=== PATIENT | female | born 1990 | race Two or more races ===

== ENCOUNTER 2024-04-14 08:00 | Outpatient (RCR) | payer MEDICAID, SELFPAY ==
--- NOTE | 2024-03-29 12:07 | PT.ODAYNRPT ---
PT Outpatient Daily Note OP Daily Note Outpatient Physical Therapy Treatment Date: 03/29/24 Visit Reasons: Left knee pain Subjective: The L knee isn't hurting today upon arrival only hurts with rotating on planted foot. Objective: See F/S for therex Assessment: Low tissue irritability of L knee with closed chain therex. The knee is rotation sensitive consistent with possible meniscus irritation Plan: Continue per POC Length of Time (minutes) of Treatment: 30 Minutes Procedure Charges Therapeutic Exercise 30 minutes: Yes
--- NOTE | 2024-04-06 08:38 | PT.ODAYNRPT ---
PT Outpatient Daily Note OP Daily Note Outpatient Physical Therapy Treatment Date: 04/06/24 Visit Reasons: Left knee pain Subjective: The L knee isn't hurting today upon arrival only hurts with rotating on planted foot. Objective: See F/S for therex Assessment: Low tissue irritability of L knee with closed chain therex. The knee is rotation sensitive consistent with possible meniscus irritation Plan: Continue per POC Length of Time (minutes) of Treatment: 30 Minutes Procedure Charges Therapeutic Exercise 30 minutes: Yes
--- NOTE | 2024-04-14 11:32 | PT.ODAYNRPT ---
PT Outpatient Daily Note OP Daily Note Outpatient Physical Therapy Treatment Date: 04/14/24 Visit Reasons: Left knee pain Subjective: The L knee isn't hurting today upon arrival only hurts with rotating on planted foot. Objective: See F/S for therex Assessment: Low tissue irritability of L knee with closed chain therex. The knee is rotation sensitive consistent with possible meniscus irritation Plan: Continue per POC Length of Time (minutes) of Treatment: 30 Minutes Procedure Charges Therapeutic Exercise 30 minutes: Yes
== END 2024-04-24 23:59 | disposition home or self-care (01) ==
LOC: CPTX 08:00
PROVIDERS: PCP Student in an Organized Health Care Education/Training Program; Referring Provider Student in an Organized Health Care Education/Training Program; Visit Provider Student in an Organized Health Care Education/Training Program
DX: M25.562 Pain in left knee (principal); R53.1 Weakness
CPT/HCPCS: 97110

== ENCOUNTER 2024-05-11 16:00 | Outpatient (RCR) | payer MEDICAID, SELFPAY ==
--- NOTE | 2024-04-27 17:24 | PT.ODAYNRPT ---
PT Outpatient Daily Note OP Daily Note Outpatient Physical Therapy Treatment Date: 04/27/24 Visit Reasons: Left knee pain Subjective: Less knee pain recently Objective: See F/S for therex Assessment: Low tissue irritability of L knee with closed chain therex. The knee is rotation sensitive consistent with possible meniscus irritation Plan: Continue per POC Length of Time (minutes) of Treatment: 30 Minutes Procedure Charges Therapeutic Exercise 30 minutes: Yes
--- NOTE | 2024-05-05 18:01 | PT.ODAYNRPT ---
PT Outpatient Daily Note OP Daily Note Outpatient Physical Therapy Treatment Date: 05/05/24 Visit Reasons: Left knee pain Length of Time (minutes) of Treatment: 30 Minutes Procedure Charges Therapeutic Exercise 30 minutes: Yes
--- NOTE | 2024-05-05 18:01 | PT.ODAYNRPT ---
PT Outpatient Daily Note OP Daily Note Outpatient Physical Therapy Treatment Date: 05/05/24 Visit Reasons: Left knee pain Subjective: Less knee pain recently Objective: See F/S for therex Assessment: Low tissue irritability of L knee with closed chain therex. The knee is rotation sensitive consistent with possible meniscus irritation Plan: Continue per POC Length of Time (minutes) of Treatment: 30 Minutes Procedure Charges Therapeutic Exercise 30 minutes: Yes
--- NOTE | 2024-05-11 19:31 | PT.ODS1RPT ---
PT OP Progress/Discharge Note Date of Service: 05/11/24 Progress Note/DC Note Progress Note/Discharge Note: DC Note Patient Information Visit Reasons: Left knee pain Service Continue Service or Discharge: Discharge Discharge Date: 05/11/24 Status Subjective: The L knee isn't hurting and she is ready to be done with therapy Objective: See F/S for therex L knee ArOM: Flexion: full Extension: full Strength: Quads: 4/5 HS: 4/5 Assessment: Pt has attended 12 sessions with good progress to meet all goals. Pt has improved quad and HS strength to 4/5 to meet that goal. She can squat x10 with low knee pain and can lift and carry 25 lbs without L knee pain. She is working without L knee pain. Plan: D/C with [facility] Procedure Charges Therapeutic Exercise 30 minutes: Yes
== END 2024-05-25 23:59 | disposition home or self-care (01) ==
LOC: CPTX 16:00
PROVIDERS: PCP Student in an Organized Health Care Education/Training Program; Referring Provider Student in an Organized Health Care Education/Training Program; Visit Provider Student in an Organized Health Care Education/Training Program
DX: M25.562 Pain in left knee (principal); R53.1 Weakness
CPT/HCPCS: 97110

== ENCOUNTER 2024-07-30 16:15 | Emergency (ER) | payer MEDICAID, SELFPAY ==
[2024-07-30 16:17] VITALS: BMI 28.0
[2024-07-30 16:33] VITALS: BP 147/98; PULSE 89; RESP 18; TEMP 36.9; O2SAT 99
--- NOTE | 2024-07-30 16:36 | XR_ITS ---
Examination: PA lateral chest 2 views Technique: Upright PA lateral chest 2 views Exam date and time: May 01, 2025 1647 hrs. Indications: Coughing chest pain shortness of breath weakness fever and chills beginning 3 days ago Findings: Normal heart size Mild to moderate elevation right hemidiaphragm Accentuation basilar bronchovascular markings. No lobar pneumonia Impression: Mild basilar bronchitis pattern
--- NOTE | 2024-07-30 16:36 | EDRME_ITS ---
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
[2024-07-30 17:31] LABS: Basophils % (Auto) 1 % (0-2.5); Eosinophils # (Auto) 0.3 Thou/mm3 (0.0-0.5); Eosinophils % (Auto) 4 % (0-10); Hematocrit 37.2 % (36.0-46.0); Hemoglobin 12.5 g/dL (12.0-16.0); Immature Granulocytes % (Auto) 0 % (0-0); Immature Granulocytes Auto 0.02 Thou/mm3 (0.00-0.00); Lymphocytes # (Auto) 2.5 Thou/mm3 (1.0-4.8); Lymphocytes % (Auto) 35 % (10-50); Mean Corpuscular HGB Conc 33.6 g/dl (31.0-37.0); Mean Corpuscular Hemoglobin 29.7 pg (25.0-35.0); Mean Corpuscular Volume 88 fL (80-100); Monocytes # (Auto) 0.6 Thou/mm3 (0.0-0.8); Monocytes % (Auto) 8 % (0-12); Neutrophils # (Auto) 3.7 Thou/mm3 (1.8-7.7); Neutrophils % (Auto) 53 % (37-80); Nucleated Red Blood Cell % 0 /100 WBC (0); Platelet Count 319 Thou/mm3 (140-440); RDW Standard Deviation 41.1 fL (36.4-46.3); Red Blood Count 4.21 Miln/mm3 (4.00-5.20)
[2024-07-30 17:50] LABS: Alanine Aminotransferase 33 U/L (10-49); Albumin, Serum 4.5 gm/dL (3.5-5.0); Albumin/Globulin Ratio 1.6 (1.2-2.2); Alkaline Phosphatase 82 U/L (46-116); Anion Gap 6 (7-16); Aspartate Amino Transferase 23 U/L (0-34); BUN/Creatinine Ratio 20 Ratio (12-20); Bilirubin,Total 0.3 mg/dL (0.3-1.2); Blood Urea Nitrogen 14 mg/dL (9-23); Calcium 9.4 mg/dL (8.3-10.6); Calcium (Corrected) 9.4 mg/dL (8.5-10.1); Carbon Dioxide 27.6 mMol/L (20.0-31.0); Chloride 106 mMol/L (98-107); Creatinine (Component) 0.7 mg/dL (0.6-1.3); Estimated Creatinine Clearance 91.4 mL/min (>60); Globulin 2.8 gm/dL (2.3-3.5); Glucose 105 mg/dL (74-106); Osmolality,Calculated 279 (275-295); Potassium 3.6 mMol/L (3.4-5.1); Sodium 140 mMol/L (136-145); Total Protein 7.3 gm/dL (5.7-8.2); eGFR > 60 See Note
--- NOTE | 2024-07-30 19:59 | PD.EDSOB ---
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 This been ongoing for the last 3 days. Patient denies any fever. Denies any other complaints. No medications taken prior to arrival. Related Data Home Medications ?Medication ?Instructions ?Recorded ?Confirmed cholecalciferol (vitamin D3) 25 25 mcg PO QDAY 06/15/20 06/15/20 mcg (1,000 unit) tablet (Vitamin D3) Previous Rx's ?Medication ?Instructions ?Recorded ondansetron 4 mg disintegrating 4 mg PO Q8H PRN nausea and 03/15/23 tablet vomiting #30 tabs prednisone 50 mg tablet 50 mg PO QDAY #5 tabs 07/30/24 Allergies Allergy/AdvReac Type Severity Reaction Status Date / Time No Known Allergies Allergy Verified 07/30/24 16:17 Review of Systems Review of Systems Narrative Review of Systems: Review of system reviewed and within normal limits except mentioned in HPI ED Exam Narrative Physical exam: VITAL SIGNS: Reviewed. GENERAL APPEARANCE: Alert and interactive, follows commands, no acute distress, HEAD AND FACE: Non-traumatic. ENT: PERRL, pink conjunctivitis, eyelid no trauma, Mucous membrane moist. NECK: Supple, nontender, no nuchal rigidity. CHEST: No tenderness, no crepitus, no paradoxical movement, no retractions. LUNGS: Clear, well ventilated, symmetric, no rales, no wheezing, no ronchi, no stridor, good breath sounds bilaterally. HEART: Regular rate, regular rhythm, no murmur, no gallops. ABDOMEN: Soft, positive bowel sounds, nondistended, no guarding, nontender, no rebound, no masses, RECTAL: Deferred. GENITAL: Deferred. NEUROLOGICAL: Gross motor function intact sensory function intact, Appropriate for age. MUSCULOSKELETAL: low back nontender, full range of motion. EXTREMITIES: Nontender, full range of motion. SKIN: Color pink, dry, no rash, no lacerations, no abrasions, no contusions. LYMPHATICS: Deferred. Course Quality Measures none Orders Category Date Time Status Bedside Influenza A&B Antigen Test NOW Care 07/30/24 16:36 Completed XR chest 2V Stat Exams 07/30/24 16:36 Completed CBC Stat Lab 07/30/24 17:00 Completed Cocci Serology IgM with reflex to IgG [Cocci Serology, Lab 07/30/24 17:00 Received Unk History] Stat Comprehensive Metabolic Panel Stat Lab 07/30/24 17:00 Completed predniSONE Med 07/30/24 19:56 Discontinued 60 mg PO X1 ONE Vital Signs Vital signs: Vital Signs Temperature 98.5 F 07/30/24 16:33 Pulse Rate 89 07/30/24 16:33 Respiratory Rate 18 07/30/24 16:33 Blood Pressure 147/98 H 07/30/24 16:33 Pulse Oximetry (%) 99 07/30/24 16:33 Oxygen Delivery Method Room Air 07/30/24 16:33 Shortness of Breath / Dyspnea [facility] Narrative MDM Narrative:: 34-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 This been ongoing for the last 3 days. Patient denies any fever. Denies any other complaints. No medications taken prior to arrival. Chest x-ray showed bronchitis pattern otherwise unremarkable. Tested negative for influenza. The rest of the labs unremarkable. Cocci is not back probably the results will be back in 2 to 3 days. Patient was advised to follow-up with PCP and asked for the results. Patient agrees with the plan. Patient data External records reviewed:: None Clinical information provided by:: patient Social determinants that could affect healthcare access:: none Patient has the following chronic illnesses:: History of valley fever How is presenting disease/condition affected by chronic disease/condition?: exacerbated by Evaluation data The following diagnostics were reviewed and interpreted by me:: lab results and radiology exam(s) Lab and/or radiology exams considered but not ordered:: None Interpretation Summary: See results in MDM none Medications / Prescriptions Medications or Prescriptions considered but not ordered:: Prednisone Medication administrations:: Medication Administration History Discontinued Medications Prednisone (Prednisone 20 Mg Tablet) 60 mg PO X1 ONE Stop: 07/30/24 19:57 Prednisone Consultations Consultation(s) initiated? (list below): No Diagnosis Shortness of Breath Differential Diagnosis: community acquired pneumonia and other (Influenza, URI) Most likely diagnosis given after review of the tests above:: Bronchitis Admission Indicated Admission indicated?: not indicated Admission Request Was there a request for admission?: No Disposition Plan Disposition Plan: Discharge Discharge Attestation Discharge Attestation: The patient was given an opportunity to ask questions and understood the discharge instructions. Discharge instructions specifically effects, indications for sooner follow up or return to the emergency department, and the expected course of current diagnosis. Patient condition: Stable Discharge Plan Plan Patient Disposition: HOME (Self Care) Disposition Comment: Stable Prescriptions/Referrals Prescriptions/Med Rec: New prednisone 50 mg tablet 50 mg PO QDAY Qty: 5 0RF No Action cholecalciferol (vitamin D3) [Vitamin D3] 25 mcg (1,000 unit) Tablet 25 mcg PO QDAY ondansetron 4 mg tablet,disintegrating 4 mg PO Q8H PRN (Reason: nausea and vomiting) Qty: 30 0RF Referrals: Yecenia Blackman FNP [Primary Care Provider] - In 1 week Problem List Clinical Impression: Bronchitis, Shortness of breath Patient/Caregiver Discharge Instructions Discharge Activity: activity as tolerated Education Materials: ED Bronchitis, No Antibiotic (Adult) Additional Instructions: Thank you for the opportunity for serving you today. You are stable for discharged . You are advised to: Follow-up with your PCP in 1 to 2 days Return to ED for worsening of symptoms Increase oral fluids Take medication as prescribed Print Language: Citizen Of [place] Stand Alone Forms: Samaria Award Info., Patient Portal Info Letter FRANK/LUCA Supervising Physician ZORA Supervising Physician: MD Dana
[2024-07-30] MEDS: predniSONE 20 MG TABLET 60 MG PO (20:13)
[2024-07-31 14:52] LABS: Cocci Serology, IgM Negative (Negative)
[2024-08-02 12:38] LABS: Cocci Serology, IgG Negative (Negative)
== END 2024-07-30 20:30 | disposition home or self-care (01) ==
PROVIDERS: Nurse Practitioner Primary Care; Emergency Provider Emergency Medicine; PCP Registered Nurse Community Health
DX: J40 Bronchitis, not specified as acute or chronic (principal)
CPT/HCPCS: 36415; 71046; 80053; 85025; 86331; 86635; 87400; 99283; J7512

== ENCOUNTER → 2024-08-30 | Outpatient (CLI) | payer MEDICAID, SELFPAY ==
--- NOTE | 2024-08-30 16:15 | XR_ITS ---
Examination: Thoracic spine 3 views Technique: AP lateral coned lateral upper dorsal spine 3 views Exam date and time: August 30, 2024 1707 hrs. Indications: Upper back pain 2 years Findings: Upper thoracic levoscoliosis 7 degrees Minimal chronic wedging T9 No acute thoracic fracture Mild diffuse thoracic disc narrowing Moderate disc narrowing C5-C6 Impression: Upper thoracic levoscoliosis 7 degrees Mild diffuse thoracic disc narrowing
== END | disposition home or self-care (01) ==
PROVIDERS: PCP Registered Nurse Community Health; Referring Provider Registered Nurse Community Health; Visit Provider Registered Nurse Community Health
DX: M41.84 Other forms of scoliosis, thoracic region (principal); M48.04 Spinal stenosis, thoracic region
CPT/HCPCS: 72072

== ENCOUNTER → 2025-02-08 | Outpatient (CLI) | payer MEDICAID, SELFPAY ==
--- NOTE | 2025-02-08 09:00 | XR_ITS ---
Examination: Upper GI series with KUB Esophagram standard Fluoroscopy 25 fluoroscopic films of the esophagus and stomach Date and time: February 08, 2025 1010 hours INDICATIONS: Abdominal pain and heartburn acid reflux nausea several years TECHNIQUE AND FINDINGS: Rn Surgical Pcu AP supine abdomen demonstrates nonobstructive bowel gas pattern. Patient swallowed thin barium with 20 spot fluoroscopic films obtained of the esophagus stomach and duodenal bulb duodenal sweep in small bowel Fluoroscopy 0.17 minutes Primary peristaltic esophageal waves No constricting esophageal lesion Mild intermittent gastroesophageal reflux. There is no stricture at the gastroesophageal junction. Peristalsis traverses the stomach normally. There is mucosal thickening involving the gastric antrum on multiple images No gastric ulcer Duodenal bulb expands symmetrically Duodenal sweep and small bowel loops visualized are unremarkable IMPRESSION: Mild intermittent gastroesophageal reflux There is no stricture the gastroesophageal junction Mucosal thickening gastric antral region most consistent with antral gastritis, clinical correlation advised
== END | disposition home or self-care (01) ==
PROVIDERS: PCP Registered Nurse Community Health; Referring Provider Registered Nurse Community Health; Visit Provider Registered Nurse Community Health
DX: K21.9 Gastro-esophageal reflux disease without esophagitis (principal); K31.89 Other diseases of stomach and duodenum
CPT/HCPCS: 74240; A4649

== ENCOUNTER → 2025-03-30 | Outpatient (CLI) | payer MEDICAID, SELFPAY ==
--- NOTE | 2025-03-30 15:12 | XR_ITS ---
Examination: Abdomen AP single view Technique: AP portable supine abdomen, single view Exam date and time: January 28, 2025, 1517 hours INDICATIONS: Hematuria episodes 1 year. FINDINGS: Abundant stool in the right colon. No renal or ureteral calculi,. No free air IMPRESSION: No renal or ureteral calculi, consider renal sonography follow-up
== END | disposition home or self-care (01) ==
PROVIDERS: PCP Registered Nurse Community Health; Referring Provider Family Medicine; Visit Provider Family Medicine
DX: N20.0 Calculus of kidney (principal)
CPT/HCPCS: 74018